=== PATIENT | male | born 1970 | race Caucasian/White ===

== ENCOUNTER 2019-07-19 07:20 | Emergency (ER) | payer SELFPAY ==
[~2019-07-19] VITALS: Ht 180.3 cm; Wt 75.0 kg
[2019-07-19] MEDS ORDERED: cloNIDine HCL 0.1 MG TABLET PO ONE (07:30)
[2019-07-19] MEDS ORDERED: ACETAMINOPHEN 650 MG/20.3 ML SOLUTION. PEG ONE (07:30)
--- NOTE | 2019-07-19 07:34 | PHYS DOC ---
Past Medical History Past Medical History: Hypertension Past Surgical History: Other Additional Past Surgical Histo: ELBOW Smoking Status: Current Every Day Smoker Alcohol Use: Occasionally General Adult EDM: Chief Complaint: HEADACHE HPI: HPI: Patient is a 49 year old male presenting to the ED with a chief complaint of headache. Patient states that the headache is been present since yesterday. Patient states that he is to take blood pressure medication but has been out of it for the last 2 months. Patient states that she used to take atenolol but does not know the dosage. Patient does admit to being an active smoker. Patient denies history of diabetes. Review of Systems: Review of Systems: Constitutional: Denies fever or chills. [] Eyes: Denies change in visual acuity. [] HENT: Denies nasal congestion or sore throat. [] Respiratory: Denies cough or shortness of breath. [] Cardiovascular: Denies chest pain or edema. [] GI: Denies abdominal pain, nausea, vomiting, bloody stools or diarrhea. [] Integument: Denies rash. [] Neurologic: Complains of headache Heart Score: Risk Factors: Risk Factors: DM, Current or recent (<one month) smoker, HTN, HLP, family history of CAD, obesity. Risk Scores: Score 0 - 3: 2.5% MACE over next 6 weeks - Discharge Home Score 4 - 6: 20.3% MACE over next 6 weeks - Admit for Clinical Observation Score 7 - 10: 72.7% MACE over next 6 weeks - Early Invasive Strategies Current Medications: Current Medications Medications (Trade) Dose Ordered Sig/Pete Start Time Stop Time Status Last Admin Dose Admin Acetaminophen (Tylenol) 650 mg 1X ONCE 07/19/19 07:30 07/19/19 07:31 UNV Clonidine HCl (Catapres) 0.2 mg 1X ONCE 07/19/19 07:30 07/19/19 07:31 UNV Physical Exam: PE: Constitutional: Well developed, well nourished, no acute distress, non-toxic appearance. [] HENT: Normocephalic, atraumatic Eyes: PERRLA, EOM Neck: Normal range of motion, no tenderness, supple, no stridor. [] Cardiovascular:Heart rate regular rhythm, no murmur [] Lungs & Thorax: Bilateral breath sounds clear to auscultation [] Abdomen: Bowel sounds normal, soft, no tenderness Extremities: No tenderness, no cyanosis, no clubbing, ROM intact, no edema. [] Neurologic: Alert and oriented X 3 Current Patient Data: Vital Signs: Vital Signs Date Time Temp Pulse Resp B/P (MAP) Pulse Ox O2 Delivery O2 Flow Rate FiO2 07/19/19 07:27 98.4 82 20 201/115 (143) 98 Room Air 98.4 EKG: EKG: [] Radiology/Procedures: Radiology/Procedures: [] Impression: CT head shows no acute disease. Course & Med Decision Making: Course & Med Decision Making Pertinent Labs and Imaging studies reviewed. (See chart for details) Ordered labs, Tylenol, Catapres, CT head CT head does not show any acute disease. Patient was given hydralazine 10 mg IV as well as Toradol 30 mg IV. Currently patient's blood pressure is 154/74. Patient states that his symptoms are resolved. Patient states that he would like to restart his blood pressure medication but does not have money to buy the medication. I will give patient a prescription for his blood pressure medications. Discussed results and plan of care with patient. Patient is instructed to follow up with PCP in one to 2 days. Appropriate discharge instructions given to patient to return to the ED or to seek immediate medical evaluation. Patient is instructed to return to the ED if symptoms worsen or if any concerns. Dara Disclaimer: Dara Disclaimer: This electronic medical record was generated, in whole or in part, using a voice recognition dictation system. Departure Departure Impression: Primary Impression: Hypertensive urgency Disposition: 01 HOME, SELF-CARE Condition: IMPROVED Patient Instructions: General Headache Without Cause, Hypertension Additional Instructions: Please return to the ED if symptoms worsen or if any concerns. Patient to set up appointment with PCP in 1 to 2 days. Scripts Atenolol (ATENOLOL) 25 Mg Tablet 1 TAB PO DAILY, #30 TAB 5 Refills Prov: NINI CARNEY DO 07/19/19 NINI CARNEY DO July 19, 2019 07:34
[2019-07-19 08:04] LABS: BASO # 0.1 x10^3/uL (0.0-0.2); BASO % 1 % (0-3); EOS # 0.2 x10^3/uL (0.0-0.7); EOS % 2 % (0-3); HEMOGLOBIN 14.5 g/dL (13.0-17.5); LYMPH % 7 % (24-48); MEAN CORPUSCULAR HEMOGLOBIN 31 pg (25-35); MEAN CORPUSCULAR HGB CONC 34 g/dL (31-37); MEAN CORPUSCULAR VOLUME 91 fL (79-100); MONO # 0.7 x10^3/uL (0.0-1.1); MONO % 5 % (0-9); NEUT # 11.1 x10^3/uL (1.8-7.7); NEUT % 85 % (31-73); PLATELET COUNT 431 x10^3/uL (140-400); RED BLOOD COUNT 4.74 x10^6/uL (4.30-5.70); WHITE BLOOD COUNT 13.1 x10^3/uL (4.0-11.0)
[2019-07-19 08:06] LABS: CALCIUM 9.7 mg/dL (8.5-10.1); CREATININE 1.1 mg/dL (0.7-1.3); GFR 71.4; POTASSIUM 4.9 mmol/L (3.5-5.1)
[2019-07-19 08:12] LABS: ALBUMIN 4.1 g/dL (3.4-5.0); ALBUMIN/GLOBULIN RATIO 1.2 (1.0-1.7); TOTAL BILIRUBIN 0.2 mg/dL (0.2-1.0); TOTAL PROTEIN 7.5 g/dL (6.4-8.2)
--- NOTE | 2019-07-19 08:27 | RAD ---
Examination: CT HEAD WO CONTRAST History: Reason: Headache / Spl. Instructions: / History: Comparison/Correlation: None available this time Findings: Axial images were obtained without contrast. Ventricles are normal size. Subtle low attenuation involving the high right frontal deep white matter is present and best seen on axial image 23. No definite findings of intracranial hemorrhage, midline shift or mass effect. Bony structures are unremarkable. Mucosal thickening of the ethmoid air cells noted. Partial opacification which may represent polyp involvement of the ethmoid air cells is noted. Impression: No intracranial hemorrhage. Indeterminate low attenuation involving the high right frontal deep white matter. This may represent chronic change or old infarct. Consider further evaluation with MRI of the brain without and with contrast for more definitive assessment if able. Electronically signed by: Pop Mcconnell MD (07/19/2019 8:24 AM) [id number]
[2019-07-19] MEDS ORDERED: hydrALAZINE 20 MG/ML VIAL. IVP ONE (09:15)
[2019-07-19] MEDS ORDERED: KETOROLAC 30 MG/ML VIAL. IVP ONE (09:15)
[2019-07-19] MEDS ORDERED: ATEN25TA PO (10:02)
[2019-07-19 10:20] VITALS: BP 177/93
== END 2019-07-19 10:20 | disposition home or self-care (01) ==
LOC: ER 07:20
DX: I16.0 Hypertensive urgency (principal); I10 Essential (primary) hypertension; F17.200 Nicotine dependence, unspecified, uncomplicated; Z98.890 Other specified postprocedural states
CPT/HCPCS: 36415; 70450; 80053; 85025; 96374; 96375; 99284; J0360; J1885